=== PATIENT | male | born 1945 | race Hispanic/Latino ===

== ENCOUNTER → 2019-07-21 | Outpatient (CLI) | payer OTHER | END | disposition home or self-care (01) | LOC: RAH 14:42 | PROVIDERS: ATTEND Internal Medicine Critical Care Medicine | DX: Z13.6 Encounter for screening for cardiovascular disorders (principal) | CPT/HCPCS: 75571 ==

== ENCOUNTER → 2019-12-12 | Outpatient (CLI) | payer OTHER ==
[~2019-12-12] MED LIST: REGADENOSON 0.4 MG/5 ML PF SYG IVP SCH
== END | disposition home or self-care (01) ==
LOC: SHCH 08:37
PROVIDERS: ATTEND Internal Medicine Cardiovascular Disease
DX: I10 Essential (primary) hypertension (principal); R06.09 Other forms of dyspnea; R94.31 Abnormal electrocardiogram [ECG] [EKG]
CPT/HCPCS: 78452; 93017; 96374; A9500 ×2; J2785

== ENCOUNTER 2021-04-18 07:41 | Day surgery (SDC) | payer OTHER ==
[2021-04-16 12:08] LABS: BASOPHILS % (AUTO) 0.8 % (0.0-5.0); EOSINOPHILS % (AUTO) 2.3 % (0.0-8.0); HEMATOCRIT 39.3 % (42-54); LYMPHOCYTES % (AUTO) 28.8 % (21.0-51.0); MEAN CORPUSCULAR HEMOGLOBIN 30.9 pg (27.0-33.0); MEAN CORPUSCULAR HGB CONC 32.3 g/dL (32.0-36.0); MEAN CORPUSCULAR VOLUME 95.6 fL (79-99); MONOCYTES % (AUTO) 7.5 % (3.0-13.0); NEUTROPHILS % (AUTO) 60.1 % (40.0-77.0); PLATELET COUNT (AUTO) 177 K/uL (130-400); RED BLOOD CELL COUNT(AUTO) 4.11 MIL/uL (4.50-6.20); RED CELL DISTRIBUTION WIDTH 13.1 % (11.0-15.5); WHITE BLOOD COUNT (AUTO) 6.4 K/uL (4.8-10.8)
[2021-04-16 12:14] LABS: APPEARANCE,URINE Clear (CLEAR); BILIRUBIN,URINE Negative (NEGATIVE); COLOR,URINE Yellow (YELLOW); GLUCOSE, URINE (UA) Negative (NEGATIVE); KETONES,URINE Negative (NEGATIVE); LEUKOCYTE ESTERASE ,URINE Negative (NEGATIVE); NITRATE,URINE Negative (NEGATIVE); OCCULT BLOOD,URINE Negative (NEGATIVE); PROTEIN,URINE Negative (NEGATIVE)
[2021-04-16 12:19] LABS: CREATININE 1.3 mg/dL (0.5-1.5); POTASSIUM 4.3 mmol/L (3.5-5.1)
[2021-04-16 12:21] LABS: INR 1.05 (0.85-1.15); PROTHROMBIN TIME 11.4 SEC (9.6-11.6)
[2021-04-16 12:22] LABS: PARTIAL THROMBOPLASTIN TIME 28.3 SEC (26.3-35.5)
[2021-04-17 10:14] VITALS: BP 104/59
[2021-04-18] VITALS (7 sets, daily range): BP systolic 113–157; BP diastolic 62–72
[~2021-04-18] VITALS: Ht 177.8 cm; Wt 86.5 kg
[~2021-04-18 07:41] MED LIST changes: +AEC81 PO; +ATOR40TA71 PO; +LOSA25TA41 PO; -REGADENOSON 0.4 MG/5 ML PF SYG IVP SCH; +TAMS-1 PO; +UBID1CAP56 PO
[2021-04-18] MEDS ORDERED: 0.9%NACL 1000ML 1,000 ML IV SCH (08:00)
[2021-04-18] MEDS ORDERED: IOHEXOL 350 MG/ML 100ML INFUS..BTL IV ONE ×2 (10:45→12:23)
[2021-04-18] MEDS ORDERED: LIDOCAINE HCL 400MG/20ML VIAL ONE (10:45)
[2021-04-18] MEDS ORDERED: NITROGLYCERIN 50MG VIAL IV ONE (10:45)
[2021-04-18] MEDS ORDERED: IOHEXOL-350 50ML VIAL IV ONE (10:45)
[2021-04-18] MEDS ORDERED: FENTANYL CITRATE PF 50 MCG/1 ML 2ML VIAL ONE (10:57)
[2021-04-18] MEDS ORDERED: MIDAZOLAM HCL 1 MG/ML 2ML VIAL ONE (10:57)
== END 2021-04-18 16:35 | disposition home or self-care (01) ==
LOC: DAH 07:41
PROVIDERS: ATTEND Internal Medicine Cardiovascular Disease
DX: I25.118 Atherosclerotic heart disease of native coronary artery with other forms of angina pectoris (principal); R06.09 Other forms of dyspnea; I10 Essential (primary) hypertension; E78.5 Hyperlipidemia, unspecified; J44.9 Chronic obstructive pulmonary disease, unspecified; Z79.01 Long term (current) use of anticoagulants; Z79.82 Long term (current) use of aspirin; Z82.49 Family history of ischemic heart disease and other diseases of the circulatory system; Z79.899 Other long term (current) drug therapy; Z98.890 Other specified postprocedural states
CPT/HCPCS: 36415; 71045; 80048; 81003; 85025; 85610; 85730; 93005; 93458; A4215; A4216; A4221; A4222; A4223 ×3; A4606; A4663; C1760; C1894 ×2; J1644; J2250; J3010; J3490 ×2; J7030; Q9965; Q9967 ×2; 99156; 99157

== ENCOUNTER 2021-05-09 07:30 | Inpatient (IN) | payer OTHER ==
[2021-05-07 12:33] LABS: ABG BASE EXCESS -1.4 mmol/L (-2.0-3.0); ABG HCO3 23.2 mmol/L (21.0-28.0); ABG OXYGEN SATURATION 94.1 % (95.0-99.0); ABG PCO2 39 mmHg (35-48)
[2021-05-07 12:49] LABS: EOSINOPHILS % (AUTO) 2.4 % (0.0-8.0); HEMATOCRIT 37.8 % (42-54); LYMPHOCYTES % (AUTO) 28.5 % (21.0-51.0); MEAN CORPUSCULAR HEMOGLOBIN 31.3 pg (27.0-33.0); MEAN CORPUSCULAR HGB CONC 33.1 g/dL (32.0-36.0); MEAN CORPUSCULAR VOLUME 94.7 fL (79-99); MONOCYTES % (AUTO) 6.7 % (3.0-13.0); NEUTROPHILS % (AUTO) 61.2 % (40.0-77.0); PLATELET COUNT (AUTO) 186 K/uL (130-400); RED BLOOD CELL COUNT(AUTO) 3.99 MIL/uL (4.50-6.20); RED CELL DISTRIBUTION WIDTH 12.8 % (11.0-15.5); WHITE BLOOD COUNT (AUTO) 6.3 K/uL (4.8-10.8)
[2021-05-07 12:57] LABS: HEMOGLOBIN A1C 6.3 % (4.0-6.0)
[2021-05-07 13:22] LABS: INR 1.05 (0.85-1.15); PROTHROMBIN TIME 11.4 SEC (9.6-11.6)
[2021-05-07 13:23] LABS: PARTIAL THROMBOPLASTIN TIME 27.8 SEC (26.3-35.5)
[2021-05-07 13:26] LABS: ALBUMIN 4.6 g/dL (3.5-5.0); BILIRUBIN,TOTAL 0.7 mg/dL (0.2-1.0); CREATININE 1.4 mg/dL (0.5-1.5); POTASSIUM 4.3 mmol/L (3.5-5.1); TOTAL PROTEIN, SERUM 7.3 g/dL (6.0-8.3)
[2021-05-08 11:44] VITALS: BP 113/64
[2021-05-09] VITALS (22 sets, daily range): BP systolic 113–168; BP diastolic 43–77
[~2021-05-09] VITALS: Ht 175.3 cm; Wt 87.9 kg
[~2021-05-09 07:30] MED LIST changes: +0.9%NACL 1000ML 1,000 ML IV ONE; +AMINOCAPROIC ACID 5,000MG VIAL 15,000 MG in 0.9% NACL 500ML IV.SOLN 420 ML IV PRN; +EPINEPHRINE PF 1MG AMP 10 MG in 0.9% NACL 250ML 240 ML IV PRN; +NOREPINEPHRINE BITARTRATE 8 MG in DEXTROSE 5%-WATER 250 ML IV PRN
[2021-05-09] MEDS ORDERED: CEFAZOLIN SODIUM 1 GM VIAL ONE (08:14)
[2021-05-09] MEDS ORDERED: PAPAVERINE HCL 30 MG/ML 2ML VIAL ONE (08:14)
[2021-05-09] MEDS ORDERED: METOPROLOL TARTRATE 25 MG TAB ONE (08:28)
[2021-05-09] MEDS: CEFAZOLIN SODIUM 1 GM VIAL IVP SCH ×2 (08:32→09:30)
[2021-05-09] MEDS ORDERED: NITROGLYCERIN 50MG/D5W 250ML 1 BOT ONE (08:43)
[2021-05-09] MEDS ORDERED: HEPARIN 10,000 UNIT/10ML (1,000 UNIT/ML) VIAL ONE ×2 (08:58→09:08)
[2021-05-09] MEDS ORDERED: LIDOCAINE PF 100MG/5ML (2%) SYRINGE 5ML ONE (09:08)
[2021-05-09] MEDS ORDERED: SODIUM BICARB 50MEQ 50ML VIAL 150 ML ONE (09:08)
[2021-05-09] MEDS ORDERED: PROTAMINE SULFATE 10 MG/ML 25ML VIAL IV ONE (09:08)
[2021-05-09] MEDS ORDERED: NOREPINEPHRINE BITARTRATE 1 MG/1 ML ML IV ONE (09:08)
[2021-05-09] MEDS ORDERED: EPINEPHRINE PF 1MG AMP ONE (09:08)
[2021-05-09] MEDS ORDERED: AMINOCAPROIC ACID 5,000MG VIAL ONE (09:08)
[2021-05-09] MEDS ORDERED: ESMOLOL HCL 10 MG/ML 10 ML VIAL ONE (09:08)
[2021-05-09] MEDS ORDERED: MIDAZOLAM HCL 1 MG/ML 2ML VIAL ONE ×2 (09:09→10:50)
[2021-05-09] MEDS ORDERED: ROCURONIUM 10MG/1ML SYR 10 MG/ML ML ONE (09:09)
[2021-05-09] MEDS ORDERED: FENTANYL CITRATE PF 50 MCG/1 ML 20ML VIAL IJ ONE (09:09)
[2021-05-09] MEDS ORDERED: PROPOFOL 10 MG/ML 20ML VIAL IV ONE (09:09)
[2021-05-09] MEDS ORDERED: KETAMINE 50MG/ML SYRINGE 50 MG/ML DISP.SYRIN IV ONE ×2 (09:10→10:50)
[2021-05-09 09:47] LABS: ABG BASE EXCESS -4.8 mmol/L (-2.0-3.0); ABG HCO3 19.6 mmol/L (21.0-28.0); ABG OXYGEN SATURATION 99.3 % (95.0-99.0); ABG PCO2 34 mmHg (35-48)
[2021-05-09] MEDS ORDERED: DEXTROSE 50%-WATER 50 ML DISP.SYRIN IV PRN (11:30)
[2021-05-09] MEDS ORDERED: ONDANSETRON 4MG INJ IV PRN (11:30)
[2021-05-09] MEDS ORDERED: 0.9% NACL 500ML IV.SOLN 500 ML IV SCH (11:30)
[2021-05-09] MEDS ORDERED: INSULIN REGULAR, HUMAN 3ML 100 UNIT in 0.9%NACL 100ML 99 ML IV SCH ×2 (11:30)
[2021-05-09] MEDS ORDERED: ALBUMIN (HUMAN) 5% 250 ML IV PRN (11:30)
[2021-05-09] MEDS ORDERED: GLUCAGON 1MG KIT 1 MG ML IM PRN (11:30)
[2021-05-09] MEDS ORDERED: SODIUM BICARB 50MEQ 50ML VIAL IV PRN (11:30)
[2021-05-09] MEDS ORDERED: MORPHINE 2 MG SYG IV PRN (11:30)
[2021-05-09] MEDS ORDERED: AMINOCAPROIC ACID 5,000MG VIAL 15,000 MG in 0.9% NACL 250ML 250 ML IV SCH (11:30)
[2021-05-09] MEDS ORDERED: PROPOFOL 1000 MG/100 ML 100 ML IV PRN (11:30)
[2021-05-09] MEDS ORDERED: ACETAMINOPHEN 325 MG TAB PO PRN (11:30)
[2021-05-09] MEDS ORDERED: NOREPINEPHRIN 4MG/NS 250ML 250 ML IV PRN (11:30)
[2021-05-09] MEDS ORDERED: EPINEPHRINE PF 1MG AMP 10 MG in DEXTROSE 5%-WATER 250 ML IV PRN (11:30)
[2021-05-09] MEDS ORDERED: NITROGLYCERIN 50MG/D5W 250ML 250 BOT IV SCH (11:30)
[2021-05-09] MEDS ORDERED: POTASSIUM PHOS 15 mMOL+NS250ML 250 ML IV PRN (11:30)
[2021-05-09] MEDS ORDERED: MORPHINE 4 MG SYG IV PRN (11:30)
[2021-05-09] MEDS ORDERED: MAGNESIUM 2GM PREMIX 50ML 50 ML IV PRN (11:30)
[2021-05-09] MEDS ORDERED: 0.9%NACL 10ML VIAL IVP PRN (11:30)
[2021-05-09] MEDS ORDERED: 0.9%NACL 1000ML 1,000 ML IV SCH (11:30)
[2021-05-09] MEDS ORDERED: ACETAMINOPHEN 650 MG SUPPOSITORY RC PRN (11:30)
[2021-05-09 11:39] LABS: ABG BASE EXCESS -4.2 mmol/L (-2.0-3.0); ABG OXYGEN SATURATION 99.3 % (95.0-99.0); ABG PCO2 34 mmHg (35-48)
[2021-05-09 12:15] LABS: HEMATOCRIT 29.5 % (42-54); MEAN CORPUSCULAR HEMOGLOBIN 31.5 pg (27.0-33.0); MEAN CORPUSCULAR HGB CONC 33.9 g/dL (32.0-36.0); MEAN CORPUSCULAR VOLUME 93.1 fL (79-99); RED BLOOD CELL COUNT(AUTO) 3.17 MIL/uL (4.50-6.20); RED CELL DISTRIBUTION WIDTH 12.8 % (11.0-15.5); WHITE BLOOD COUNT (AUTO) 21.9 K/uL (4.8-10.8)
[2021-05-09 12:26] LABS: ABG BASE EXCESS -1.7 mmol/L (-2.0-3.0); ABG OXYGEN SATURATION 98.3 % (95.0-99.0); ABG PCO2 39 mmHg (35-48)
[2021-05-09 12:27] LABS: INR 1.29 (0.85-1.15); PROTHROMBIN TIME 13.7 SEC (9.6-11.6)
[2021-05-09 12:29] LABS: CREATININE 1.4 mg/dL (0.5-1.5); MAGNESIUM 1.6 mg/dL (1.80-2.40); PHOSPHORUS 4.1 mg/dL (2.5-4.9); POTASSIUM 3.1 mmol/L (3.5-5.1)
[2021-05-09] MEDS: POTASSIUM CHLORIDE 20MEQ/100ML 100 ML IV PRN ×3 (13:02→17:12)
[2021-05-09] MEDS: CEFAZOLIN SODIUM 1 GM VIAL IV SCH ×2 (16:06→23:35)
[2021-05-09] MEDS: TRAMADOL HCL 50 MG TABLET PO PRN ×2 (17:10→19:41)
[2021-05-09] MEDS ORDERED: CALCIUM GLUC 1GM/10ML VIAL ONE (17:14)
[2021-05-09] MEDS: CALCIUM GLUC 1GM 1 GM in 0.9%NACL 50ML 50 ML IV PRN (18:30)
[2021-05-09] MEDS: FAMOTIDINE 20MG VIAL IV SCH (19:41)
[2021-05-09] MEDS: ATORVASTATIN 40 MG TABLET PO SCH (20:05)
[2021-05-09] MEDS: TAMSULOSIN HCL 0.4 MG CAP.ER.24H PO SCH (20:05)
[2021-05-10] VITALS (24 sets, daily range): BP systolic 95–149; BP diastolic 48–92
[2021-05-10] MEDS: TRAMADOL HCL 50 MG TABLET PO PRN ×2 (01:17→22:19)
[2021-05-10 04:35] LABS: HEMATOCRIT 32.6 % (42-54); MEAN CORPUSCULAR HEMOGLOBIN 30.5 pg (27.0-33.0); MEAN CORPUSCULAR HGB CONC 32.5 g/dL (32.0-36.0); MEAN CORPUSCULAR VOLUME 93.9 fL (79-99); RED BLOOD CELL COUNT(AUTO) 3.47 MIL/uL (4.50-6.20); RED CELL DISTRIBUTION WIDTH 13.2 % (11.0-15.5); WHITE BLOOD COUNT (AUTO) 12.9 K/uL (4.8-10.8)
[2021-05-10 04:46] LABS: INR 1.11 (0.85-1.15)
[2021-05-10 04:48] LABS: PARTIAL THROMBOPLASTIN TIME 25.1 SEC (26.3-35.5)
[2021-05-10 04:51] LABS: CREATININE 1.4 mg/dL (0.5-1.5); MAGNESIUM 2.1 mg/dL (1.80-2.40); PHOSPHORUS 4.6 mg/dL (2.5-4.9); POTASSIUM 4.3 mmol/L (3.5-5.1)
[2021-05-10] MEDS: CALCIUM GLUC 1GM 1 GM in 0.9%NACL 50ML 50 ML IV PRN (05:25)
[2021-05-10] MEDS: ASPIRIN 81 MG EC TAB PO SCH (09:08)
[2021-05-10] MEDS: FAMOTIDINE 20MG VIAL IV SCH ×2 (09:08→22:18)
[2021-05-10] MEDS: CEFAZOLIN SODIUM 1 GM VIAL IV SCH (09:08)
[2021-05-10] MEDS: FUROSEMIDE 20MG VIAL IV SCH ×2 (09:08→22:18)
[2021-05-10 15:29] LABS: HEMATOCRIT 34.8 % (42-54); MEAN CORPUSCULAR HEMOGLOBIN 30.9 pg (27.0-33.0); MEAN CORPUSCULAR HGB CONC 32.5 g/dL (32.0-36.0); MEAN CORPUSCULAR VOLUME 95.1 fL (79-99); PLATELET COUNT (AUTO) 159 K/uL (130-400); RED BLOOD CELL COUNT(AUTO) 3.66 MIL/uL (4.50-6.20); RED CELL DISTRIBUTION WIDTH 13.5 % (11.0-15.5); WHITE BLOOD COUNT (AUTO) 17.4 K/uL (4.8-10.8)
[2021-05-10] MEDS ORDERED: ASPIRIN 325MG TAB ONE (15:45)
[2021-05-10] MEDS ORDERED: CLOPIDOGREL 75MG TAB ONE (15:45)
[2021-05-10 15:51] LABS: CREATININE 1.8 mg/dL (0.5-1.5); POTASSIUM 4.1 mmol/L (3.5-5.1)
[2021-05-10 15:55] LABS: ALBUMIN 3.7 g/dL (3.5-5.0); BILIRUBIN,TOTAL 0.7 mg/dL (0.2-1.0); MAGNESIUM 2.1 mg/dL (1.80-2.40); PHOSPHORUS 4.8 mg/dL (2.5-4.9); TOTAL PROTEIN, SERUM 6.5 g/dL (6.0-8.3)
[2021-05-10 16:04] LABS: LYMPHOCYTES % (MANUAL) 12 % (22-44); MAN.DIFF COMMENT-IMPRESSION MANUAL DIFFERENTIAL; MONOCYTES % (MANUAL) 9 % (2-9); SEGMENTED NEUTROPHILS % 79 % (40-70)
[2021-05-10 16:05] LABS: PLATELET MORPHOLOGY COMMENT ADEQUATE
[2021-05-10] MEDS: ATORVASTATIN 40 MG TABLET PO SCH (22:18)
[2021-05-10] MEDS: TAMSULOSIN HCL 0.4 MG CAP.ER.24H PO SCH (22:18)
[2021-05-10] MEDS: METOPROLOL TARTRATE 25 MG TAB PO SCH (22:19)
[2021-05-11] VITALS (24 sets, daily range): BP systolic 99–138; BP diastolic 53–82
[2021-05-11] MEDS: TRAMADOL HCL 50 MG TABLET PO PRN (05:19)
[2021-05-11 05:26] LABS: MEAN CORPUSCULAR HEMOGLOBIN 30.6 pg (27.0-33.0); MEAN CORPUSCULAR HGB CONC 31.9 g/dL (32.0-36.0); MEAN CORPUSCULAR VOLUME 95.7 fL (79-99); RED BLOOD CELL COUNT(AUTO) 3.24 MIL/uL (4.50-6.20); RED CELL DISTRIBUTION WIDTH 13.4 % (11.0-15.5); WHITE BLOOD COUNT (AUTO) 15.3 K/uL (4.8-10.8)
[2021-05-11 05:35] LABS: CREATININE 1.5 mg/dL (0.5-1.5); POTASSIUM 4.1 mmol/L (3.5-5.1)
[2021-05-11] MEDS: CLOPIDOGREL 75MG TAB PO SCH (08:31)
[2021-05-11] MEDS: ASPIRIN 81 MG EC TAB PO SCH (08:31)
[2021-05-11] MEDS: FUROSEMIDE 20 MG TABLET PO SCH ×2 (08:31→16:42)
[2021-05-11] MEDS: FAMOTIDINE 20MG VIAL IV SCH ×2 (08:31→21:19)
[2021-05-11] MEDS: METOPROLOL TARTRATE 25 MG TAB PO SCH ×2 (08:31→21:19)
[2021-05-11] MEDS ORDERED: METOPROLOL TARTRATE 25 MG TAB PO SCH (09:00)
[2021-05-11] MEDS ORDERED: POLYETHYLENE GLYCOL 3350 17 GM POWD.PACK PO PRN (14:00)
[2021-05-11] MEDS: ATORVASTATIN 40 MG TABLET PO SCH (21:19)
[2021-05-11] MEDS: TAMSULOSIN HCL 0.4 MG CAP.ER.24H PO SCH (21:19)
[2021-05-12] VITALS (16 sets, daily range): BP systolic 94–132; BP diastolic 52–78
[2021-05-12 04:10] LABS: HEMATOCRIT 29.4 % (42-54); MEAN CORPUSCULAR HEMOGLOBIN 30.6 pg (27.0-33.0); MEAN CORPUSCULAR VOLUME 95.8 fL (79-99); RED BLOOD CELL COUNT(AUTO) 3.07 MIL/uL (4.50-6.20); RED CELL DISTRIBUTION WIDTH 13.2 % (11.0-15.5); WHITE BLOOD COUNT (AUTO) 10.9 K/uL (4.8-10.8)
[2021-05-12 04:30] LABS: CREATININE 1.5 mg/dL (0.5-1.5); POTASSIUM 3.7 mmol/L (3.5-5.1)
[2021-05-12 07:52] LABS: ABG BASE EXCESS 4.3 mmol/L (-2.0-3.0); ABG HCO3 29.7 mmol/L (21.0-28.0); ABG OXYGEN SATURATION 94.7 % (95.0-99.0); ABG PCO2 48 mmHg (35-48)
[2021-05-12 07:53] LABS: ABG BASE EXCESS 1.9 mmol/L (-2.0-3.0); ABG HCO3 27.4 mmol/L (21.0-28.0); ABG OXYGEN SATURATION 96.2 % (95.0-99.0); ABG PCO2 47 mmHg (35-48)
[2021-05-12 07:53] LABS: ABG BASE EXCESS -6.8 mmol/L (-2.0-3.0); ABG HCO3 20.1 mmol/L (21.0-28.0); ABG OXYGEN SATURATION 94.1 % (95.0-99.0); ABG PCO2 46 mmHg (35-48)
[2021-05-12 07:53] LABS: ABG BASE EXCESS -2.2 mmol/L (-2.0-3.0); ABG HCO3 23.7 mmol/L (21.0-28.0); ABG OXYGEN SATURATION 94.7 % (95.0-99.0); ABG PCO2 45 mmHg (35-48)
[2021-05-12] MEDS: FAMOTIDINE 20MG TAB PO SCH ×2 (08:55→20:16)
[2021-05-12] MEDS: METOPROLOL TARTRATE 25 MG TAB PO SCH ×2 (08:55→20:16)
[2021-05-12] MEDS: CLOPIDOGREL 75MG TAB PO SCH (08:55)
[2021-05-12] MEDS: ASPIRIN 81 MG EC TAB PO SCH (08:55)
[2021-05-12] MEDS: FUROSEMIDE 20 MG TABLET PO SCH ×2 (08:55→16:44)
[2021-05-12] MEDS: TRAMADOL HCL 50 MG TABLET PO PRN ×2 (10:53→20:19)
[2021-05-12] MEDS: ENOXAPARIN SODIUM 30 MG/0.3 ML SQ SCH (12:21)
[2021-05-12] MEDS: TAMSULOSIN HCL 0.4 MG CAP.ER.24H PO SCH (20:16)
[2021-05-12] MEDS: ATORVASTATIN 40 MG TABLET PO SCH (20:16)
[2021-05-13 04:21] VITALS: BP 149/75
[2021-05-13 04:25] LABS: HEMATOCRIT 27.5 % (42-54); MEAN CORPUSCULAR HEMOGLOBIN 30.3 pg (27.0-33.0); MEAN CORPUSCULAR HGB CONC 32.7 g/dL (32.0-36.0); MEAN CORPUSCULAR VOLUME 92.6 fL (79-99); RED BLOOD CELL COUNT(AUTO) 2.97 MIL/uL (4.50-6.20); WHITE BLOOD COUNT (AUTO) 7.9 K/uL (4.8-10.8)
[2021-05-13 04:56] LABS: CREATININE 1.5 mg/dL (0.5-1.5); POTASSIUM 3.4 mmol/L (3.5-5.1)
[2021-05-13] MEDS: KCL 20 MEQ ERTAB PO PRN (05:29)
[2021-05-13] MEDS ORDERED: POTASSIUM CHLORIDE 20MEQ/100ML 100 ML IV PRN (05:30)
[2021-05-13] MEDS ORDERED: POTASSIUM CHLORIDE 10% ELIXIR 20 MEQ/15 ML UDCUP PO PRN (05:30)
[2021-05-13] MEDS ORDERED: LIDOCAINE HCL-MPF 1% 2ML VIAL IV PRN (05:30)
[2021-05-13 07:26] VITALS: BP 104/56
[2021-05-13] MEDS: FAMOTIDINE 20MG TAB PO SCH ×2 (09:00→21:02)
[2021-05-13] MEDS: CLOPIDOGREL 75MG TAB PO SCH (09:00)
[2021-05-13] MEDS: ASPIRIN 81 MG EC TAB PO SCH (09:00)
[2021-05-13] MEDS: METOPROLOL TARTRATE 25 MG TAB PO SCH ×2 (09:00→21:02)
[2021-05-13] MEDS: ENOXAPARIN SODIUM 30 MG/0.3 ML SQ SCH (09:00)
[2021-05-13] MEDS: FUROSEMIDE 20 MG TABLET PO SCH ×2 (09:00→17:26)
[2021-05-13 11:10] VITALS: BP 120/71
[2021-05-13 15:13] VITALS: BP 116/69
[2021-05-13 19:53] VITALS: BP 130/79
[2021-05-13] MEDS: ATORVASTATIN 40 MG TABLET PO SCH (21:02)
[2021-05-13] MEDS: TAMSULOSIN HCL 0.4 MG CAP.ER.24H PO SCH (21:02)
[2021-05-13] MEDS ORDERED: METO25 PO (21:34)
[2021-05-13] MEDS ORDERED: CLOP75TA14 PO (21:34)
[2021-05-13] MEDS ORDERED: FURO20TA6 PO (21:34)
[2021-05-13] MEDS: TRAMADOL HCL 50 MG TABLET PO PRN (22:23)
[2021-05-13 23:49] VITALS: BP 127/62
[2021-05-14 04:13] VITALS: BP 107/61
[2021-05-14 07:00] VITALS: BP 104/57
[2021-05-14] MEDS: ENOXAPARIN SODIUM 30 MG/0.3 ML SQ SCH (08:35)
[2021-05-14] MEDS: FUROSEMIDE 20 MG TABLET PO SCH (08:36)
[2021-05-14] MEDS: FAMOTIDINE 20MG TAB PO SCH (08:36)
[2021-05-14] MEDS: CLOPIDOGREL 75MG TAB PO SCH (08:37)
[2021-05-14] MEDS: METOPROLOL TARTRATE 25 MG TAB PO SCH (08:37)
[2021-05-14] MEDS: ASPIRIN 81 MG EC TAB PO SCH (08:37)
[2021-05-14] MEDS: KCL 20 MEQ ERTAB PO PRN (08:40)
== END 2021-05-14 09:40 | disposition home or self-care (01) | DRG 235 ==
LOC: DAHIP 08:06 → 2CV 08:44 → 2CH 19:14 → 2DH 05-12 15:13
PROVIDERS: ADMIT Thoracic Surgery (Cardiothoracic Vascular Surgery); ATTEND Thoracic Surgery (Cardiothoracic Vascular Surgery)
PROC: 06BQ4ZZ Excision of Left Saphenous Vein, Percutaneous Endoscopic Approach (ICD-10-PCS; 2021-05-09)
PROC: 02100Z9 Bypass Coronary Artery, One Artery from Left Internal Mammary, Open Approach (ICD-10-PCS; principal; 2021-05-09 09:09)
PROC: 021209W Bypass Coronary Artery, Three Arteries from Aorta with Autologous Venous Tissue, Open Approach (ICD-10-PCS; 2021-05-09 09:09)
DX: I25.119 Atherosclerotic heart disease of native coronary artery with unspecified angina pectoris (principal); I50.33 Acute on chronic diastolic (congestive) heart failure; J93.9 Pneumothorax, unspecified; E87.70 Fluid overload, unspecified; Z20.822 Contact with and (suspected) exposure to COVID-19; E78.5 Hyperlipidemia, unspecified; J44.9 Chronic obstructive pulmonary disease, unspecified; E78.00 Pure hypercholesterolemia, unspecified; N40.0 Benign prostatic hyperplasia without lower urinary tract symptoms; Z90.49 Acquired absence of other specified parts of digestive tract; Z79.82 Long term (current) use of aspirin; Z79.02 Long term (current) use of antithrombotics/antiplatelets; Z79.899 Other long term (current) drug therapy; I11.0 Hypertensive heart disease with heart failure
CPT/HCPCS: 36415; 36600; 71045; 71046; 80048; 80053; 80061; 82435; 82550; 82803; 82947; 82948; 83036; 83605; 83735; 83874; 84100; 84132; 84295; 84484; 85018; 85025; 85027; 85347; 85610; 85730; 86850; 86900; 86901; 86923; 87635; 93005; 93880; 94002; 94010; 97039; A7048; G0378; J0171; J0610; J0690; J1644; J1650; J1815; J1940; J2001; J2250; J2405; J2440; J2704; J2720; J3010; J3475; J3480; J3490; J7030; J7040

== ENCOUNTER 2021-05-21 09:54 | Emergency (ER) | payer OTHER ==
[~2021-05-21] VITALS: Ht 175.3 cm; Wt 80.7 kg
[~2021-05-21 09:54] MED LIST changes: -0.9%NACL 1000ML 1,000 ML IV ONE; -AMINOCAPROIC ACID 5,000MG VIAL 15,000 MG in 0.9% NACL 500ML IV.SOLN 420 ML IV PRN; +CLOP75TA14 PO; -EPINEPHRINE PF 1MG AMP 10 MG in 0.9% NACL 250ML 240 ML IV PRN; +FURO20TA6 PO; -LOSA25TA41 PO; +METO25 PO; -NOREPINEPHRINE BITARTRATE 8 MG in DEXTROSE 5%-WATER 250 ML IV PRN
[2021-05-21 10:28] LABS: BASOPHILS % (AUTO) 0.7 % (0.0-5.0); EOSINOPHILS % (AUTO) 3.7 % (0.0-8.0); HEMATOCRIT 32.6 % (42-54); LYMPHOCYTES % (AUTO) 12.9 % (21.0-51.0); MEAN CORPUSCULAR HEMOGLOBIN 30.5 pg (27.0-33.0); MEAN CORPUSCULAR HGB CONC 33.1 g/dL (32.0-36.0); MEAN CORPUSCULAR VOLUME 92.1 fL (79-99); MONOCYTES % (AUTO) 6.5 % (3.0-13.0); NEUTROPHILS % (AUTO) 75.6 % (40.0-77.0); PLATELET COUNT (AUTO) 400 K/uL (130-400); RED BLOOD CELL COUNT(AUTO) 3.54 MIL/uL (4.50-6.20); RED CELL DISTRIBUTION WIDTH 12.9 % (11.0-15.5)
[2021-05-21 10:39] LABS: CREATININE 1.4 mg/dL (0.5-1.5); POTASSIUM 3.8 mmol/L (3.5-5.1)
[2021-05-21 10:45] LABS: ALBUMIN 3.7 g/dL (3.5-5.0); BILIRUBIN,TOTAL 0.7 mg/dL (0.2-1.0); TOTAL PROTEIN, SERUM 7.7 g/dL (6.0-8.3)
[2021-05-21 10:48] LABS: B-TYPE NATRIURETIC PEPTIDE 168 pg/mL (0-100)
[2021-05-21] MEDS ORDERED: LORA10TA7 PO (12:22)
[2021-05-21] MEDS ORDERED: FLUT16H NASAL (12:22)
[2021-05-21 12:46] VITALS: BP 128/80
== END 2021-05-21 12:45 | disposition home or self-care (01) ==
LOC: EDH 09:54
DX: J32.9 Chronic sinusitis, unspecified (principal); I11.0 Hypertensive heart disease with heart failure; I50.9 Heart failure, unspecified; E78.00 Pure hypercholesterolemia, unspecified; Z79.82 Long term (current) use of aspirin; Z79.899 Other long term (current) drug therapy; Z95.1 Presence of aortocoronary bypass graft
CPT/HCPCS: 36415; 71045; 80053; 83880; 84484; 85025; 93005

== ENCOUNTER 2021-06-25 12:48 | Emergency (ER) | payer OTHER ==
[~2021-06-25] VITALS: Ht 175.3 cm; Wt 81.2 kg
[~2021-06-25 12:48] MED LIST changes: +FLUT16H NASAL; +LORA10TA7 PO
[2021-06-25 13:20] LABS: EOSINOPHILS % (AUTO) 4.8 % (0.0-8.0); HEMATOCRIT 37.8 % (42-54); LYMPHOCYTES % (AUTO) 26.3 % (21.0-51.0); MEAN CORPUSCULAR HEMOGLOBIN 29.5 pg (27.0-33.0); MEAN CORPUSCULAR VOLUME 95.2 fL (79-99); NEUTROPHILS % (AUTO) 57.7 % (40.0-77.0); PLATELET COUNT (AUTO) 246 K/uL (130-400); RED BLOOD CELL COUNT(AUTO) 3.97 MIL/uL (4.50-6.20); RED CELL DISTRIBUTION WIDTH 13.9 % (11.0-15.5)
[2021-06-25 13:29] LABS: CREATININE 1.5 mg/dL (0.5-1.5); POTASSIUM 4.2 mmol/L (3.5-5.1)
[2021-06-25 13:33] LABS: ALBUMIN 4.3 g/dL (3.5-5.0); BILIRUBIN,TOTAL 0.6 mg/dL (0.2-1.0); TOTAL PROTEIN, SERUM 7.3 g/dL (6.0-8.3)
[2021-06-25 15:16] VITALS: BP 112/71
[2021-06-25] MEDS ORDERED: IOHEXOL 350 MG/ML 100ML INFUS..BTL IV ONE (15:20)
[2021-06-25] MEDS ORDERED: 0.9% NACL 500ML IV.SOLN 500 ML IV ONE (15:30)
== END 2021-06-25 16:54 | disposition home or self-care (01) ==
LOC: EDH 12:48
DX: R06.00 Dyspnea, unspecified (principal); R22.42 Localized swelling, mass and lump, left lower limb; E78.00 Pure hypercholesterolemia, unspecified; Z79.82 Long term (current) use of aspirin; Z79.899 Other long term (current) drug therapy; Z95.1 Presence of aortocoronary bypass graft
CPT/HCPCS: 36415; 71045; 71275; 80053; 83880; 84484; 85025; 85378; 93005; 93971; 99284; Q9967

== ENCOUNTER → 2021-07-29 | Outpatient (CLI) | payer OTHER | END | disposition home or self-care (01) | LOC: RAH 14:17 | PROVIDERS: ATTEND Thoracic Surgery (Cardiothoracic Vascular Surgery) | DX: L76.34 Postprocedural seroma of skin and subcutaneous tissue following other procedure (principal); R22.32 Localized swelling, mass and lump, left upper limb; Z95.1 Presence of aortocoronary bypass graft | CPT/HCPCS: 76882 ==

== ENCOUNTER → 2021-08-22 | Outpatient (CLI) | payer OTHER ==
[~2021-08-22] MED LIST changes: +LIDOCAINE HCL MPF 1% 5ML VIAL ONE
[2021-08-22 09:22] LABS: INR 1.03 (0.85-1.15); PROTHROMBIN TIME 11.2 SEC (9.6-11.6)
[2021-08-22 09:23] LABS: PARTIAL THROMBOPLASTIN TIME 27.1 SEC (26.3-35.5)
== END | disposition home or self-care (01) ==
LOC: RAH 07:59
PROVIDERS: ATTEND Thoracic Surgery (Cardiothoracic Vascular Surgery)
DX: L76.34 Postprocedural seroma of skin and subcutaneous tissue following other procedure (principal); Z79.01 Long term (current) use of anticoagulants; Z79.899 Other long term (current) drug therapy; Z98.890 Other specified postprocedural states; Y83.8 Other surgical procedures as the cause of abnormal reaction of the patient, or of later complication, without mention of misadventure at the time of the procedure
CPT/HCPCS: 10030; 36415; 85610; 85730; 87071; 87205; C1729; J3490; 75989; 76942

== ENCOUNTER 2023-06-11 22:44 | Emergency (ER) | payer OTHER ==
[~2023-06-11] VITALS: Ht 177.8 cm; Wt 87.5 kg
[~2023-06-11 22:44] MED LIST changes: +CLOP-31 PO; -CLOP75TA14 PO; -LIDOCAINE HCL MPF 1% 5ML VIAL ONE
[2023-06-11 22:53] VITALS: BP 170/77; PULSE 57; RESP 16; O2SAT 98
[2023-06-11 23:00] LABS: BASOPHILS # (AUTO) 0.05 K/uL (0.00-0.20); BASOPHILS % (AUTO) 0.8 % (0.0-5.0); EOSINOPHILS # (AUTO) 0.32 K/uL (0.00-0.70); EOSINOPHILS % (AUTO) 5.1 % (0.0-8.0); HEMATOCRIT 37.3 % (42-54); IMMATURE GRANULOCYTE ABSOLUTE 0.02 K/uL (0-1); LYMPHOCYTES # (AUTO) 2.1 K/uL (1.0-4.8); LYMPHOCYTES % (AUTO) 33.9 % (21.0-51.0); MEAN CORPUSCULAR HEMOGLOBIN 31.5 pg (27.0-33.0); MEAN CORPUSCULAR VOLUME 95.6 fL (79-99); MONOCYTES # (AUTO) 0.6 K/uL (0.1-1.0); MONOCYTES % (AUTO) 9.8 % (3.0-13.0); NEUTROPHILS # (AUTO) 3.1 K/uL (1.8-7.7); NEUTROPHILS % (AUTO) 50.1 % (40.0-77.0); PLATELET COUNT (AUTO) 151 K/uL (130-400); RED CELL DISTRIBUTION WIDTH 13.1 % (11.0-15.5); WHITE BLOOD COUNT (AUTO) 6.3 K/uL (4.8-10.8)
[2023-06-11 23:11] LABS: CREATININE 1.3 mg/dL (0.5-1.5); POTASSIUM 3.9 mmol/L (3.5-5.1)
[2023-06-11 23:18] LABS: B-TYPE NATRIURETIC PEPTIDE 28 pg/mL (0-100)
[2023-06-11 23:19] LABS: ALBUMIN 3.8 g/dL (3.5-5.0); BILIRUBIN,TOTAL 0.4 mg/dL (0.2-1.0); MAGNESIUM 1.9 mg/dL (1.80-2.40); TOTAL PROTEIN, SERUM 6.7 g/dL (6.0-8.3)
[2023-06-11] MEDS ORDERED: MECL-262 PO (23:25)
== END 2023-06-11 23:39 | disposition home or self-care (01) ==
LOC: EDH 22:44
DX: H81.10 Benign paroxysmal vertigo, unspecified ear (principal); E78.00 Pure hypercholesterolemia, unspecified; M19.90 Unspecified osteoarthritis, unspecified site; Z79.02 Long term (current) use of antithrombotics/antiplatelets; Z79.82 Long term (current) use of aspirin; Z85.038 Personal history of other malignant neoplasm of large intestine; Z90.49 Acquired absence of other specified parts of digestive tract; Z95.1 Presence of aortocoronary bypass graft
CPT/HCPCS: 36415; 71045; 80053; 82550; 83735; 83880; 84484; 85025; 93005

== ENCOUNTER → 2023-08-13 | Outpatient (CLI) | payer OTHER ==
[~2023-08-13] MED LIST changes: +MECL-262 PO
== END | disposition home or self-care (01) ==
LOC: SHCH 13:57
PROVIDERS: ATTEND Internal Medicine Cardiovascular Disease
DX: I08.2 Rheumatic disorders of both aortic and tricuspid valves (principal); I25.10 Atherosclerotic heart disease of native coronary artery without angina pectoris; I11.9 Hypertensive heart disease without heart failure; E78.5 Hyperlipidemia, unspecified; Z95.1 Presence of aortocoronary bypass graft
CPT/HCPCS: 93306